=== PATIENT | male | born 1960 ===

== ENCOUNTER 2019-12-01 15:20 | Emergency (ER) | payer OTHER ==
[2019-12-01] MEDS ORDERED: Acetaminophen 325 MG TAB ONE (16:40)
--- NOTE | 2019-12-01 16:41 | RAD ---
XR Shoulder Lt 3 View STANDARD HISTORY: Injury, left shoulder pain FINDINGS: No fracture or dislocation is identified.
--- NOTE | 2019-12-01 16:42 | RAD ---
XR Chest 1 View Portable HISTORY: Blunt injury. Chest pain COMPARISON: None FINDINGS: The heart size is normal. The lungs are well expanded without focal areas of consolidation, pneumothorax or pleural effusions. IMPRESSION: No radiographic evidence of acute cardiopulmonary process.
--- NOTE | 2019-12-01 16:43 | RAD ---
XR Hand Lt 3 View STANDARD HISTORY: Injury, left hand pain FINDINGS: No fracture or dislocation is identified.
== END 2019-12-01 17:27 ==
LOC: ERS 15:20
DX: S69.92XA Unspecified injury of left wrist, hand and finger(s), initial encounter (principal); E03.9 Hypothyroidism, unspecified; Z79.899 Other long term (current) drug therapy; Y04.0XXA Assault by unarmed brawl or fight, initial encounter; Y92.149 Unspecified place in prison as the place of occurrence of the external cause
CPT/HCPCS: 29125; 71045